=== PATIENT | male | born 1975 | race Caucasian/White ===

== ENCOUNTER 2019-01-01 12:55 | Emergency (ER) | payer OTHER ==
[2019-01-01 14:41] LABS: ADD MAN DIFF? NO
[2019-01-01 14:46] LABS: BASOPHIL # 0.1 10^3/ul (0.0-0.1); BASOPHILS % 0.7 % (0.0-2.0); EOSINOPHILS # 0.2 10^3/ul (0.0-0.5); EOSINOPHILS % 2.6 % (0.0-7.0); HEMATOCRIT 43.7 % (42.0-52.0); HEMOGLOBIN 15.1 g/dl (14.0-18.0); LYMPHOCYTES # 2.1 10^3/ul (0.8-2.9); LYMPHOCYTES % 23.2 % (15.0-51.0); MEAN CORPUSCULAR HEMOGLOBIN 31.7 pg (29.0-33.0); MEAN CORPUSCULAR HGB CONC 34.6 g/dl (32.0-37.0); MEAN CORPUSCULAR VOLUME 91.6 fl (82.0-101.0); MEAN PLATELET VOLUME 10.4 fl (7.4-10.4); MONOCYTE # 0.6 10^3/ul (0.3-0.9); MONOCYTES % 7.1 % (0.0-11.0); NEUTROPHIL # 5.9 10^3/ul (1.6-7.5); NEUTROPHILS % 65.8 % (39.0-77.0); PLATELET COUNT 257 10^3/UL (140-415); RED BLOOD COUNT 4.77 10^6/ul (4.70-6.10); RED CELL DISTRIBUTION WIDTH 11.9 % (11.5-14.5)
[2019-01-01] MEDS: FAMOTIDINE 20 MG INJ IV (14:53)
[2019-01-01] MEDS: HYDROmorphONE 1 MG/ML SYG IV (14:53)
[2019-01-01] MEDS: LIDOCAINE/MYLANTA 40 ML BTL PO (14:54)
[2019-01-01] MEDS: ONDANSETRON 4 MG INJ IV (14:54)
[2019-01-01] MEDS: BELLADONNA/PHENOBARBITAL TAB PO (14:54)
[2019-01-01 15:02] LABS: ALANINE AMINOTRANSFERASE 29 IU/L (13-69); ALBUMIN 4.4 g/dl (3.3-4.9); ALKALINE PHOSPHATASE 120 IU/L (42-121); ANION GAP 12 (5-13); ASPARTATE AMINO TRANSFERASE 20 IU/L (15-46); BILIRUBIN,INDIRECT 0.5 mg/dl (0-1.1); BILIRUBIN,TOTAL 0.5 mg/dl (0.2-1.3); BLOOD UREA NITROGEN 15 mg/dl (7-20); CALCIUM 9.6 mg/dl (8.4-10.2); CARBON DIOXIDE 27 mmol/L (21-31); CHLORIDE 102 mmol/L (97-110); CREATININE 1.01 mg/dl (0.61-1.24); Estimated GFR > 60 mL/min (>60); GLUCOSE 203 mg/dl (70-220); LIPASE 38 U/L (23-300); POTASSIUM 4.1 mmol/L (3.5-5.1); SODIUM 141 mmol/L (135-144); TOTAL PROTEIN 7.8 g/dl (6.1-8.1)
[2019-01-01 15:03] LABS: ALBUMIN/GLOBULIN RATIO 1.29
== END 2019-01-01 16:27 | disposition home or self-care (01) ==
LOC: E/R 12:55
DX: K29.70 Gastritis, unspecified, without bleeding (principal); Z87.891 Personal history of nicotine dependence
CPT/HCPCS: 36415; 76705; 80053; 83690; 85025; 96374; 96375; 99285-25